=== PATIENT | male | born 1990 | race Caucasian/White ===

== ENCOUNTER 2017-09-11 00:32 | Emergency (ER) | payer OTHER ==
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
[2017-09-11] MEDS ORDERED: NS 1,000 ML IV ONE (00:50)
[2017-09-11] MEDS ORDERED: IPRATROPIUM/ALBUTEROL 3 ML DEYVIAL IH ONE (00:51)
--- NOTE | 2017-09-11 01:09 | CPEKG ---
Heart Rate: 80 RR Interval: 750 P-R Interval: 188 QRSD Interval: 96 QT Interval: 384 QTC Interval: 443 P [place]: 33 QRS [place]: 63 T Wave [place]: 54 EKG Severity - NORMAL ECG - EKG Impression: SINUS RHYTHM Electronically Signed By: Kd Harris 12-Sep-2017 07:41:40
[2017-09-11 01:15] LABS: PLATELET COUNT 267 10^3/uL (150-400)
[2017-09-11 01:24] LABS: INR 1.07 (0.83-1.16); PROTIME(PATIENT) 14.1 SEC (12.0-15.0)
[2017-09-11 01:29] LABS: CREATINE KINASE 86 IU/L (0-224)
[2017-09-11 02:59] VITALS: RESP 16
[2017-09-11] MEDS ORDERED: predniSONE 20 MG TAB PO ONE (03:34)
[2017-09-11] MEDS ORDERED: AZITHROMYCIN 250 MG TAB PO ONE (03:34)
[2017-09-11 03:46] VITALS: BP 135/75; PULSE 75; TEMP 98.6; O2SAT 96
== END 2017-09-11 03:46 | disposition home or self-care (01) ==
DX: R06.02 Shortness of breath (principal); E86.9 Volume depletion, unspecified; F17.200 Nicotine dependence, unspecified, uncomplicated
CPT/HCPCS: J7512